=== PATIENT | female | born 1965 | race Caucasian/White ===

== ENCOUNTER 2024-03-21 15:05 | Outpatient (CLI) | payer OTHER, SELFPAY ==
--- NOTE | 2024-03-21 15:30 | MR_ITS ---
[address] [address] Phone:?[phone] Fax:?[phone] Referring Physician Information: Dave Harmon M.D. [id number] [facility] [address] Phone:?[phone] Fax:?[phone] Patient:Sherrie Coffey D.O.B:?1965 Sex:?Female Phone:?[phone] [facility] MRN:?[id number] Exam Date:?03/21/2024 EXAM: MRI OF THE RIGHT KNEE CLINICAL INFORMATION: The patient is a 58-year-old with right knee pain. Evaluate for meniscal tear. PRIOR SURGERY: None reported. COMPARISON STUDIES: Comparison is made to prior radiographs dated 03/06/2024. TECHNICAL INFORMATION: Imaging was performed on a high-field, 1.5 Dolly MR scanner. Coronal proton-density and coronal STIR imaging of the right knee was performed in addition to sagittal proton-density and fat-suppressed proton- density imaging. Axial proton-density and fat-suppressed T2 imaging was also produced. FINDINGS: Articular/Extraarticular collections: Effusion: Mild. Popliteal cyst: Small to moderate, seen on sagittal series 6 image 22. Surrounding soft tissue edema and/or hemorrhage is noted. Loose bodies: No well-defined intra-articular loose bodies are noted. Subcutaneous and extraarticular soft tissues: Nonspecific subcutaneous soft tissue edema and/or hemorrhage can be seen along the anterior and medial aspects of the right knee. Osseous structures: Areas of cortical irregularity, subcortical cystic change, and subcortical edema can be seen along the medial articular surfaces of the medial femoral condyle and medial tibial plateau. The findings are in keeping with reactive bony changes related to meniscal tearing and chondral loss discussed below. No other bony abnormalities about the knee are seen. There is no evidence for fracture, contusion, or stress injury. Ligamentous structures: ACL: Intact and normal in appearance. PCL: Intact and normal in appearance. MCL: Intact and normal in appearance. LCL: Intact and normal in appearance. Posterolateral corner: Intact and normal in appearance. Posteromedial corner: No posteromedial corner soft tissue injury. Semimembranosus and pes anserine tendons demonstrate no tendinopathy or associated bursitis. Extensor mechanism/Patellar retinacular structures: Patellar tendon: Intact, without tendinopathy. Quadriceps tendon: Intact, without tendinopathy. Retinacula: The medial and lateral retinacula are intact. The medial patellofemoral ligament is intact. Medial compartment: Medial meniscus: The medial meniscus is abnormal in appearance. There is apical free edge and inferior surface tearing of the middle one third seen on coronal series 7 image 16. Additional degeneration and irregularity of the anterior and posterior horns of the medial meniscus can be seen. There is poorly defined tearing of the far posterior aspect of the medial meniscus at the meniscotibial attachment on coronal series 8 image 20 and on sagittal series 5 image 18. The area of tearing of the far posterior aspect measures approximately 10 mm in greatest dimension. No definite parameniscal cyst formation is identified. Medial femoral condyle: Full-thickness and near full-thickness chondral loss can be seen along the weightbearing surfaces of the medial femoral condyle. Medial tibial plateau: Full-thickness and near full-thickness chondral loss can be seen along the weightbearing surfaces of the medial tibial plateau. Lateral compartment: Lateral meniscus: No evidence for lateral meniscal tearing is present. No evidence for parameniscal cyst formation can be seen. Lateral femoral condyle: No chondromalacia, chondral defect, or osteochondral abnormality. Lateral tibial plateau: Grade II chondromalacia can be seen along the weightbearing surfaces of the lateral tibial plateau on sagittal series 6 image 10 and on coronal series 8 image 20. Patellofemoral compartment: Patella: Grade III chondromalacia can be seen involving the patellar apex and medial facet on axial series 3 image 11, measuring 20 mm in mediolateral dimension. No chondral injuries of the lateral patellar facet are noted. Trochlea: Broad-based changes of grade II to III chondromalacia can be seen along the central and medial articular surfaces of the femoral trochlea. Neurovascular: No definite neurovascular abnormalities are seen. CONCLUSION: 1. 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 No lateral meniscal tearing is seen. 2. 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 Underlying bony changes are seen. 3. Chondromalacia and chondral loss involving the patellofemoral articulation. 4. 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 5. The cruciate and collateral ligaments appear intact. 6. Mild knee joint effusion and [id number] popliteal cyst. [facility] Electronically signed on 03/22/2024 7:42:00 AM by Randolph Huffman M.D.
== END 2024-03-21 15:06 | disposition home or self-care (01) ==
LOC: MRI 15:08
PROVIDERS: PCP Internal Medicine; Visit Provider Orthopaedic Surgery
DX: M25.561 Pain in right knee (principal); S83.241A Other tear of medial meniscus, current injury, right knee, initial encounter; M94.261 Chondromalacia, right knee; M22.41 Chondromalacia patellae, right knee; M25.461 Effusion, right knee; S83.206A Unspecified tear of unspecified meniscus, current injury, right knee, initial encounter
CPT/HCPCS: 73721